=== PATIENT | female | born 1990 | race Caucasian/White ===

== ENCOUNTER → 2016-07-31 | Day surgery (SDC) | payer OTHER ==
[2016-07-30 14:23] LABS: BASOPHIL 0.1 % (0-2); EOSINOPHIL 0.9 % (0-5); HCT 36.8 % (37.0-47.0); HGB 12.1 g/dl (12.5-16.0); LYMPHOCYTE 26.3 % (15-48); MCH 31.3 pg (25.0-31.0); MCHC 32.9 g/dL (32.0-36.0); MCV 95.3 fL (78.0-100.0); MONOCYTE 9.8 % (0-12); MPV 9.9 fL (6.0-9.5); NEUTROPHIL 62.9 % (41-80); PLT 317 K/uL (150-400); RBC 3.86 M/uL (4.20-5.40); RDW 12.6 % (11.5-14.0); WBC 7.8 K/uL (4.0-10.5)
== END | disposition home or self-care (01) ==
LOC: FAS 07:52
PROVIDERS: Oral & Maxillofacial Surgery
DX: K02.9 Dental caries, unspecified (principal); G80.9 Cerebral palsy, unspecified; G40.909 Epilepsy, unspecified, not intractable, without status epilepticus; K21.9 Gastro-esophageal reflux disease without esophagitis; Z88.5 Allergy status to narcotic agent; Z79.899 Other long term (current) drug therapy
CPT/HCPCS: 36415; 84703; 85025; J1100; J1170; J1885; J2405; J2704; J2710; J3010